=== PATIENT | female | born 1980 | race Caucasian/White ===

== ENCOUNTER 2019-03-28 09:07 | Day surgery (SDC) | payer OTHER ==
[2019-03-28 10:09] VITALS: BMI 30.9
[2019-03-28] MEDS ORDERED: hydrALAZINE 20 MG/ML VIAL SLOW IVP PRN (10:59)
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
[2019-03-29] MEDS ORDERED: FLU VACC QS2019-20(6MOS UP)/PF 60 MCG/0.5 ML SYRINGE IM ONE (09:00)
== END 2019-03-28 12:20 | disposition home or self-care (01) ==
LOC: L&D/OP 09:07
PROVIDERS: ATTEND Obstetrics & Gynecology
DX: Z04.1 Encounter for examination and observation following transport accident (principal); O09.513 Supervision of elderly primigravida, third trimester; Z3A.30 30 weeks gestation of pregnancy
CPT/HCPCS: 59025; 99282

== ENCOUNTER 2019-05-19 23:53 | Inpatient (IN) | payer OTHER ==
[2019-05-20 00:21] VITALS: BMI 33.6
[2019-05-20] MEDS ORDERED: hydrALAZINE 20 MG/ML VIAL SLOW IVP PRN ×3 (00:49→07:00)
--- NOTE | 2019-05-20 01:34 | PRG ---
DATE OF SERVICE: 05/19/2019 PRIMARY OB: Carola Sue MD. CHIEF COMPLAINT: Abdominal pain. HISTORY OF PRESENT ILLNESS: The patient is a 39-year-old G1, P0 female with an intrauterine at 38 weeks and 3 days, presenting to Labor and Delivery with the pelvic pressure and bloody show. The patient reports that she went to the bathroom and noticed that she had some blood in the toilet that she noticed when she wiped and came here for evaluation. The patient was 1 cm last week when she was last checked. The patient reports that she has been having upper respiratory infection and started amoxicillin yesterday. Denies any fever. She has been having a cough. Denies chest pain, shortness of breath, nausea, vomiting, diarrhea. She does have constipation. Denies any new rashes, hip problems, knee problems, muscle weakness. Denies any leakage of fluid, urinary urgency or frequency. PAST MEDICAL HISTORY: Negative. PAST SURGICAL HISTORY: Noncontributory. ALLERGIES: NO KNOWN DRUG ALLERGIES. MEDICATIONS: 1. vitamins. 2. Prozac. OB LABS: Unavailable at the time of dictation. SOCIAL HISTORY: Denies drug, alcohol, or tobacco use. REVIEW OF SYSTEMS: Per HPI. PHYSICAL EXAMINATION: VITAL SIGNS: Blood pressure 153/85, heart rate is 79, respiratory rate of 18 saturating 98% on room air, temperature 97.6. GENERAL: She appears to be in no acute distress. She is alert and oriented, cooperative, and pleasant to interact with. HEAD: Normocephalic and atraumatic. LUNGS: Clear to auscultation bilaterally. HEART: Regular rate and rhythm. ABDOMEN: Gravid, soft, nontender. EXTREMITIES: Nontender, nonedematous. CERVICAL: She is 3, 80, and -1 station. heart tracing: Fetus shows a baseline in the 130s with moderate long-term variability, positive accelerations, no decelerations, having contractions every 5-6 minutes. ASSESSMENT AND PLAN: The patient is a 39-year-old female with an intrauterine at 38 weeks and 3 days here for bloody show. The patient is having contractions and may be entering latent labor. We will watch her for a few hours and recheck her cervix. SVE in recheck 6cm. Pt admitted for labor gbs positive- pcn for prophylaxis Job ID: [id number] [facility]
[2019-05-20] MEDS ORDERED: Lidocaine 1% (PF) 30 ML VIAL SC PRN (02:30)
[2019-05-20] MEDS ORDERED: Ondansetron PF 4 MG/2 ML Vial IVP PRN ×2 (02:30→07:00)
[2019-05-20] MEDS ORDERED: NS / Oxytocin 40 units/1000ml 1,000 ML IV PRN ×2 (02:30→02:32)
[2019-05-20] MEDS ORDERED: Butorphanol Tartrate 1 MG/ML VIAL SLOW IVP PRN (02:30)
[2019-05-20] MEDS ORDERED: Fentanyl 4 mcg/Bup 0.1% Cadd 0 ML ONE (02:31)
[2019-05-20] MEDS ORDERED: HYDROcodone/Acetaminophen 5/325 mg Tablet PO PRN ×2 (02:32→07:00)
[2019-05-20] MEDS ORDERED: Ibuprofen 800 MG TAB PO PRN (02:32)
[2019-05-20] MEDS ORDERED: Butorphanol Tartrate 1 MG/ML VIAL ONE (02:37)
[2019-05-20] MEDS ORDERED: Lactated Ringer's 1,000 ML IV SCH ×2 (02:45→03:45)
[2019-05-20] MEDS ORDERED: Penicillin G Potassium 5 MILL.UNITS in Sodium Chloride 0.9% 100 ML IVPB SCH (03:00)
[2019-05-20 03:13] LABS: Hemoglobin 14.7 g/dL (12.0-16.0); Mean Corpuscular HGB CONC 36.1 g/dL (32.0-36.0); Mean Corpuscular Hemoglobin 33.2 pg (27.0-31.0); Mean Corpuscular Volume 92.1 fL (78.0-98.0); Mean Platelet Volume 9.1 fL (7.4-10.4); Platelet Count 195 thou/uL (130-400); RBC Distribution Width 13.5 % (11.5-14.5); Red Blood Cell (RBC) Count 4.43 mill/uL (4.20-5.40); White Blood Cell (WBC) Count 11.3 thou/uL (4.8-10.8)
[2019-05-20] MEDS ORDERED: Terbutaline Sulfate 1 MG/ML VIAL ONE (03:26)
[2019-05-20 03:32] LABS: HBSAg Index 0.33 S/CO (0-0.99); Hep B Surf Ag Non-Reactive S/CO (NonReactive)
[2019-05-20 04:31] LABS: Syphilis Antibody Nonreactive (Nonreactive); Syphilis Antibody Index 0.03 S/CO (<1.00 Non-Reactive)
[2019-05-20] MEDS ORDERED: NS / Oxytocin 40 units/1000ml 1,000 ML IV SCH (07:00)
[2019-05-20] MEDS ORDERED: Lanolin Ointment 7 GM TUBE TOP PRN (07:00)
[2019-05-20] MEDS ORDERED: Benzocaine-Menthol 82.5 ML CAN TOP PRN (07:00)
[2019-05-20] MEDS ORDERED: Penicillin G 2.5 MILL.units 2.5 MILL.UNITS in Premix Bag 1 BAG IVPB SCH (07:00)
[2019-05-20] MEDS ORDERED: Bisacodyl 10 MG SUPP PR PRN (07:00)
[2019-05-20] MEDS ORDERED: Milk Of Magnesia 30 ML UDCUP PO PRN (07:00)
--- NOTE | 2019-05-20 10:10 | DN ---
DATE OF PROCEDURE: 05/20/2019 The patient delivered a female on 05/20/2019 at 0451 hours by an uncomplicated term spontaneous vaginal delivery at 38 weeks and 3 days gestation. Weight was 3104 g. Apgars were 8 and 9. Placenta delivered spontaneously followed by Pitocin infusion. There were no lacerations. Quantitative blood loss [address] Wheeler is the delivering physician. Counts were correct. Fetus had a nuchal cord x1 loose. Mother and baby were both stable in the room in the immediate period. Job ID: [id number] [facility]
[2019-05-20] MEDS: Prenatal Vitamin 1 TAB PO SCH (12:37)
[2019-05-20] MEDS: Docusate Calcium (SURFAK) 240 MG CAP PO SCH ×2 (12:37→22:26)
[2019-05-20] MEDS: Ferrous Sulfate 325 MG TAB PO SCH ×2 (12:37→14:15)
[2019-05-20] MEDS: Ibuprofen 800 MG TAB PO SCH ×2 (14:14→22:26)
[2019-05-21] MEDS: Ibuprofen 800 MG TAB PO SCH ×3 (05:55→22:11)
--- NOTE | 2019-05-21 07:56 | PDOC.PP ---
Post Progress Note Post Day #: 1 PO intake tolerated: yes Flatus: yes Ambulation: yes Vital Signs (12 hours) Temp Pulse Resp BP Pulse Ox 05/21/19 05:55 98.0 F 86 18 138/86 05/21/19 00:15 98.7 F 86 16 128/73 05/20/19 19:56 98.3 F 74 16 124/78 97 Weight Weight 196 lb Result Diagrams: 05/20/19 02:42 Additional Labs: Post Labs Blood Type A POSITIVE 05/20/19 05:45 Hep Bs Antigen Non-Reactive S/CO (NonReactive) 05/20/19 02:42 - Assessment/Plan Post day 1 from . Routine care. Anticipate discharge home in AM.
[2019-05-21] MEDS ORDERED: Adacel (T-DAP) 0.5 ML SYRINGE IM ONE (09:00)
[2019-05-21] MEDS: Ferrous Sulfate 325 MG TAB PO SCH ×2 (09:09→16:39)
[2019-05-21] MEDS: Prenatal Vitamin 1 TAB PO SCH (09:33)
[2019-05-21] MEDS: Docusate Calcium (SURFAK) 240 MG CAP PO SCH ×2 (09:33→22:11)
[2019-05-22] MEDS: Ibuprofen 800 MG TAB PO SCH (05:55)
[2019-05-22] MEDS: Docusate Calcium (SURFAK) 240 MG CAP PO SCH (09:01)
[2019-05-22] MEDS: Prenatal Vitamin 1 TAB PO SCH (09:01)
[2019-05-22] MEDS: Ferrous Sulfate 325 MG TAB PO SCH (09:01)
[2019-05-22 11:54] VITALS: BP 132/84; TEMP 98.4
== END 2019-05-22 15:23 | disposition home or self-care (01) | DRG 807 ==
LOC: L&D/OP 23:53 → L&D 05-20 02:30 → 3SE 05-20 12:05
PROVIDERS: ADMIT Obstetrics & Gynecology; ATTEND Obstetrics & Gynecology
PROC: 10E0XZZ Delivery of Products of Conception, External Approach (ICD-10-PCS; principal; 2019-05-20)
PROC: 3E033VJ Introduction of Other Hormone into Peripheral Vein, Percutaneous Approach (ICD-10-PCS; 2019-05-20)
DX: O99.824 Streptococcus B carrier state complicating childbirth (principal); Z37.0 Single live birth; O69.81X0 Labor and delivery complicated by cord around neck, without compression, not applicable or unspecified; Z3A.38 38 weeks gestation of pregnancy
CPT/HCPCS: 36415; 51701; 85027; 86780; 86850; 86900; 86901; 87340; 99285; J0595; J2540; J3105; J3490

== ENCOUNTER 2019-05-23 15:20 | Emergency (ER) | payer OTHER ==
[2019-05-23 16:06] LABS: #Basophils 0.1 thou/uL (0.0-0.2); #Eosinphils 0.1 thou/uL (0.0-0.7); #Lymphocytes 2.5 thou/uL (1.20-3.40); #Monocytes 0.4 thou/uL (0.11-0.59); #Neutrophils 9.8 thou/uL (1.40-6.50); %Basophils 0.8 % (0.0-1.0); %Eosinophils 1.1 % (0.0-10.0); %Lymphocytes 19.4 % (21.0-51.0); %Monocytes 3.3 % (0.0-10.0); %Neutrophils 75.4 % (42.0-75.0); Hemoglobin 11.4 g/dL (12.0-16.0); Mean Corpuscular HGB CONC 34.1 g/dL (32.0-36.0); Mean Corpuscular Hemoglobin 31.3 pg (27.0-31.0); Mean Platelet Volume 7.2 fL (7.4-10.4); Platelet Count 272 thou/uL (130-400); RBC Distribution Width 13.4 % (11.5-14.5); Red Blood Cell (RBC) Count 3.63 mill/uL (4.20-5.40); White Blood Cell (WBC) Count 12.9 thou/uL (4.8-10.8)
[2019-05-23 16:27] LABS: ALT (SGPT) 52 U/L (8-55); AST (SGOT) 68 U/L (5-34); Albumin 3.2 g/dL (3.5-5.0); Alkaline Phosphatase 143 U/L (40-110); Anion Gap 13 mmol/L (10-20); BUN (Urea Nitrogen) 9 mg/dL (7.0-18.7); Bilirubin, Total 0.2 mg/dL (0.2-1.2); Calc. Creatinine Clearance 0 mL/min (70-130); Calcium 9.1 mg/dL (7.8-10.44); Carbon Dioxide 23 mmol/L (22-29); Chloride 106 mmol/L (98-107); Estimated GFR-MDRD 90; Globulin 3.4 g/dL (2.4-3.5); Glucose 83 mg/dL (70-105); Potassium 3.9 mmol/L (3.5-5.1); Protein, Total 6.6 g/dL (6.0-8.3); Sodium 138 mmol/L (136-145)
[2019-05-23 16:47] LABS: Bilirubin Negative (Negative); Blood, Urine 1+ (Negative); Clarity Clear (Clear); Glucose, Urine (Dipstick) Normal (Negative); Leukocyte 25 Leu/uL (Negative); Nitrite Negative (Negative); Protein, Urine (Dipstick) Negative (Neg-Trace); Squamous Epithelial 0-3 HPF (0-3); Urobilinogen Normal mg/dL (Less than 2)
[2019-05-23 16:48] LABS: Bacteria/HPF Rare-Few HPF (None Seen)
--- NOTE | 2019-05-23 16:58 | ULT ---
Pelvic sonogram transabdominal imaging HISTORY: Pelvic pain and bleeding. 3 days . FINDINGS: Urinary bladder is decompressed. Uterus is slightly retroverted and enlarged. It measures u p to 15.3 cm length by 11.6 cm length by 7.9 cm depth. Appropriate prominence of the endometrial cavity. No free fluid within the pelvis. Each ovary is obscured. Patient declined transvaginal imagin g. IMPRESSION: appearance of the uterus. No evidence of complication.
[2019-05-23] MEDS ORDERED: Clindamycin/D5W 900 mg/50 ml Premix Bag ONE (17:24)
--- NOTE | 2019-05-24 01:07 | CON ---
DATE OF CONSULTATION: 05/23/2019 PRIMARY OB: Dr. Sue. CHIEF COMPLAINT: Abdominal pain. HISTORY OF PRESENT ILLNESS: The patient is a 39-year-old G1, now P1 female, day 4, status post a delivery, uncomplicated. The patient was discharged home yesterday and reports back today complaining of right lower quadrant pain. She reports that this pain is intermittent that it comes and goes. It is worse with activity and movement such as getting out of the bed, passing her baby on to her , lifting up into the truck. She reports that they got bad enough that she had difficulty walking and came here for evaluation. She denies any fever. She denies any foul smelling discharge. She does have periods where the pain is gone and then it returns. The patient has been taking ibuprofen regularly without significant pain control. The patient denies any nausea, vomiting, any shaking, any chills, any fever. Denies diarrhea or constipation. Denies increasing pain at breast-feeding. She denies changes in appetite. SOCIAL HISTORY: The patient lives here locally. She denies any drug, alcohol, or tobacco use. PAST MEDICAL HISTORY: Significant for depression. PAST SURGICAL HISTORY: Negative. ALLERGIES: NO KNOWN DRUG ALLERGIES. MEDICATIONS: Prozac 20 mg. PHYSICAL EXAMINATION: VITAL SIGNS: Blood pressure 135/87, pulse 78, respiratory rate of 16, saturating 97% on room air. GENERAL: She appears to be in no acute distress. She is alert, oriented, cooperative, and pleasant to interact with. HEENT: Head is normocephalic, atraumatic. LUNGS: Clear to auscultation bilaterally. HEART: Has regular rate and rhythm. ABDOMEN: Tender in the right lower quadrant. She has no fundal tenderness on palpation of the fundus. She has some tenderness in the right lower quadrant over her rectus muscle. Does not appear to be having again tenderness coming from deep palpation of the fundus. No upper abdominal discomfort. No hip pains or leg pain on palpation. Vulva is without masses, lesions, or erythema. With speculum exam, the patient did not have any undue discomfort. There was just normal-appearing bloody lochia. No active bleeding. No purulence. No foul odor and did not have again any undue discomfort or pain from placement of a speculum. LABORATORY DATA: The patient has a white count of 12.9, hemoglobin 11.4, hematocrit 33.4, platelets of 272,000, neutrophil percentage of 75%. Chemistry significant for mildly elevated AST of 68, ALT of 52, potassium of 3.9, creatinine of 0.72. Urine negative for bacteria. Negative for ketones or nitrites, only 4-6 white blood cells, 0-3 squamous cells. ASSESSMENT AND PLAN: The patient is a 39-year-old G1, now P1 female, day 4, status post a spontaneous vaginal delivery, presenting with intermittent right lower quadrant abdominal pain that by history and by physical exam is more consistent with musculoskeletal pain in my opinion than an endomyometritis. The patient has no fundal tenderness. The fundus is firm. She has no purulence coming on exam. Her discharge appears to be normal in nature. No foul odor. White count is not unusually elevated with no significant left shift. The patient is afebrile and does not appear ill by history or by exam. I did give the patient an option for admission for observation and placed on antibiotics empirically. I did also offer the patient be discharged home with only precautions and instructions to seek medical attention should she start having fever, increasing foul discharge, increasing pain that is not intermittent in nature. I have asked the patient to continue her home medications which she seemed appropriate with. When offered Tylenol No. 3 for better pain control, the patient declined. I have recommended the patient be discharged home. I have discussed that with the ER provider on duty and will be sending this report to Dr. Sue for followup. Job ID: [id number]
== END 2019-05-23 18:06 | disposition home or self-care (01) ==
LOC: ERS 15:20
DX: O86.12 Endometritis following delivery (principal); F32.9 Major depressive disorder, single episode, unspecified; Z79.899 Other long term (current) drug therapy
CPT/HCPCS: 36415; 76856; 80053; 81003; 81015; 85025; 93976; J3490

== ENCOUNTER 2024-12-31 02:12 | Emergency (ER) | payer MEDICAID, SELFPAY ==
[2024-12-31] MEDS ORDERED: Dexamethasone 10 MG/ML VIAL ONE (02:30)
[2024-12-31] MEDS ORDERED: diphenhydrAMINE 50 MG/ML VIAL ONE (02:31)
[2024-12-31] MEDS ORDERED: Famotidine/PF 20 mg/2ml Vial ONE (02:31)
== END 2024-12-31 09:01 | disposition home or self-care (01) ==
LOC: ERS 02:12
DX: T78.40XA Allergy, unspecified, initial encounter (principal)
CPT/HCPCS: 94760; 96372; 96374; 96375; J0169; J1100; J1200; J1308